=== PATIENT | female | born 1950 | race Caucasian/White ===

== ENCOUNTER → 2020-12-23 | Outpatient (CLI) | payer MEDICARE, BC ==
--- NOTE | 2020-12-23 09:52 | RAD ---
EXAM: Left knee, 3 views; right shoulder, 3 views. HISTORY: Pain. COMPARISON: None. FINDINGS: Left knee: 3 views of the left knee are obtained. There is medial compartment joint space narrowing w ith degenerative subchondral sclerosis and spurring. There is mild patellofemoral compartment spurrin g. There is minimal enthesopathy along the superior patella. There is trace joint fluid. Right shoulder: 3 views of the right shoulder obtained. There is no fracture, dislocation or subluxat ion. There is a small inferiorly directed distal clavicular spur. IMPRESSION: 1. Moderate medial compartment and mild patellofemoral compartment osteoarthritis of the left knee. 2. Mild right acromioclavicular osteoarthritis with small inferiorly directed distal clavicular spur. Electronically signed by: Daphne Armenta MD (12/23/2020 9:50 AM) [id number]
== END ==
LOC: RAD 09:31
PROVIDERS: ATTEND Orthopaedic Surgery
DX: M19.011 Primary osteoarthritis, right shoulder (principal); M17.12 Unilateral primary osteoarthritis, left knee; M77.8 Other enthesopathies, not elsewhere classified; M25.811 Other specified joint disorders, right shoulder
CPT/HCPCS: 73030; 73562